=== PATIENT | male | born 1980 | race Caucasian/White ===

== ENCOUNTER 2018-04-30 17:29 | Outpatient (CLI) | payer BC ==
--- NOTE | 2018-04-30 18:26 | RAD ---
CERVICAL SPINE RADIOGRAPH SERIES: INDICATIONS: Injury. Cervical radiculopathy. Pain. TECHNIQUE: Seven views provided. FINDINGS: There is no significant malalignment. No compression fracture. Disk space heights are preserved. P revertebral soft tissues are normal in caliber. IMPRESSION: No acute osseous abnormality. If symptoms of radiculopathy persist, recommend followup with a cervical spine MRI. POS: [facility]
== END 2018-04-30 17:30 | disposition home or self-care (01) ==
LOC: SCSRAD 17:29
PROVIDERS: ATTEND Chiropractor
DX: M54.12 Radiculopathy, cervical region (principal)
CPT/HCPCS: 72050

== ENCOUNTER 2021-11-24 12:22 | Emergency (ER) | payer BC ==
[2021-11-24 13:09] LABS: #Basophils 0.1 thou/uL (0.0-0.2); #Eosinphils 0.1 thou/uL (0.0-0.7); #Lymphocytes 1.6 thou/uL (1.20-3.40); #Monocytes 0.6 thou/uL (0.11-0.59); #Neutrophils 4.2 thou/uL (1.40-6.50); %Eosinophils 1.6 % (0.0-10.0); %Monocytes 8.4 % (0.0-10.0); Mean Corpuscular HGB CONC 33.5 g/dL (32.0-36.0); Mean Corpuscular Hemoglobin 31.8 pg (27.0-31.0); Mean Corpuscular Volume 95.1 fL (78.0-98.0); Mean Platelet Volume 7.9 fL (7.4-10.4); Platelet Count 158 thou/uL (130-400); RBC Distribution Width 12.1 % (11.5-14.5); Red Blood Cell (RBC) Count 5.34 mill/uL (4.70-6.10); White Blood Cell (WBC) Count 6.5 thou/uL (4.8-10.8)
[2021-11-24 13:19] LABS: ALT (SGPT) 20 U/L (8-55); AST (SGOT) 23 U/L (5-34); Albumin 4.6 g/dL (3.5-5.0); Alkaline Phosphatase 44 U/L (40-110); Anion Gap 12 mmol/L (10-20); BUN (Urea Nitrogen) 15 mg/dL (8.9-20.6); Calc. Creatinine Clearance 0 mL/min (70-130); Calcium 9.6 mg/dL (7.8-10.44); Carbon Dioxide 27 mmol/L (22-29); Chloride 104 mmol/L (98-107); Globulin 2.7 g/dL (2.4-3.5); Glucose 101 mg/dL (70-105); Potassium 3.8 mmol/L (3.5-5.1); Protein, Total 7.3 g/dL (6.0-8.3); Sodium 139 mmol/L (136-145)
[2021-11-24 13:48] LABS: INR-International Normal Ratio 1.1; PTT 34.3 sec (22.9-36.1); Prothrombin Time 14.6 sec (12.0-14.7)
[2021-11-24 13:51] LABS: D-Dimer Test Less than 0.27 *mcg/mL (0.27-0.43)
[2021-11-24] MEDS ORDERED: Apixaban 5 MG TAB PO SCH (16:00)
== END 2021-11-24 17:35 | disposition home or self-care (01) ==
LOC: ERS 12:22
DX: I48.92 Unspecified atrial flutter (principal)
CPT/HCPCS: 36415; 71045; 80053; 84443; 84484; 85025; 85379; 85610; 85730; 93005; 94760